=== PATIENT | female | born 1995 | race Caucasian/White ===

== ENCOUNTER → 2018-06-03 | Outpatient (CLI) | payer OTHER | END | disposition home or self-care (01) | LOC: LABWHC1 09:53 | PROVIDERS: ATTEND Obstetrics & Gynecology | DX: N91.2 Amenorrhea, unspecified (principal) | CPT/HCPCS: 36415; 84702 ==

== ENCOUNTER → 2018-07-29 | Outpatient (CLI) | payer OTHER ==
--- NOTE | 2018-07-29 09:22 | US ---
EXAMINATION TYPE: US abdomen complete DATE OF EXAM: 07/29/2018 COMPARISON: CLINICAL HISTORY: R10.11 Right upper quad pain. RUQ pain, NPO EXAM MEASUREMENTS: Liver Length: 14.4 cm Gallbladder Wall: 0.2 cm CHD: 0.3 cm Spleen: 11.6 cm Right Kidney: 9.9 x 5.3 x 4.4 cm Left Kidney: 11.0 x 4.0 x 4.3 cm Suboptimal visualization due to overlying bowel gas Simple cyst left kidney. Pancreas: Tail obscured by overlying bowel gas Liver: wnl Gallbladder: Multiple mobile stones seen Evidence for sonographic Blanchard's sign: neg CBD: Obscured by overlying bowel gas CHD: wnl Spleen: wnl Right Kidney: wnl Left Kidney: Medial anechoic lesion seen at hilum - 1.4 x 1.1 cm Upper IVC: wnl Abd Aorta: Proximal portion obscured by overlying bowel gas. Portions seen appear wnl The liver is homogenous. The intrahepatic portion of the IVC and proximal abdominal aorta are within normal limits. Common bile duct is unremarkable. The visualized portions of the pancreas are homo genous. The spleen is unremarkable. Kidneys are symmetric and free of hydronephrosis. No renal les ions are seen. IMPRESSION: 1. Multiple gallstones noted. 2.
== END | disposition home or self-care (01) ==
LOC: RADUSWWP 08:10
PROVIDERS: ATTEND Physician Assistant Medical
DX: K80.20 Calculus of gallbladder without cholecystitis without obstruction (principal)
CPT/HCPCS: 76700

== ENCOUNTER → 2024-07-31 | Outpatient (CLI) | payer OTHER ==
[2024-07-31 14:05] LABS: INR 0.9 (<1.2); Partial Thromboplastin Time 24.6 sec (22.0-30.0); Prothrombin Time 10.4 sec (10.0-12.5)
[2024-08-01 02:35] LABS: HCT 43.2 % (37.2-46.3); HGB 14.3 g/dL (12.0-15.0); MCH 29.3 pg (27.0-32.0); MCHC 33.1 g/dL (32.0-37.0); MCV 88.5 FL (80.0-97.0); Mean Platelet Volume 10.3 FL (9.5-12.2); NRBC Per 100 WBC 0 X 10*3/uL (0.00-0.01); Platelet Count 309 X 10*3/uL (140-440); RBC 4.88 X 10*6/uL (4.10-5.20); RDW 12.9 % (11.5-14.5); WBC 7.62 X 10*3/uL (4.50-10.00)
[2024-08-01 03:33] LABS: % Iron Saturation 11.11 (12.00-45.00); ALT 29 U/L (8-44); AST 19 U/L (13-35); Albumin 4.2 g/dL (3.8-4.9); Albumin/Globulin Ratio 1.75 Ratio (1.60-3.17); Alkaline Phosphatase 99 U/L (41-126); BUN/Creat Ratio 15.86 Ratio (12.00-20.00); Blood Urea Nitrogen 11.1 mg/dL (9.0-27.0); Calcium 9.4 mg/dL (8.7-10.3); Carbon Dioxide 23.5 mmol/L (21.6-31.8); Chloride 105 mmol/L (96-109); Chol/HDL Ratio 3.33 Ratio; Ferritin 26.4 ng/mL (10.0-291.0); Globulin 2.4 g/dL (1.6-3.3); Glucose 83 mg/dL (70-110); Iron 39 UG/DL (50-170); LDL Cholesterol,Calculated 93.8 mg/dL (0.0-131.0); Magnesium 1.8 mg/dL (1.5-2.4); Phosphorus 3.6 mg/dL (2.4-5.1); Sodium 140 mmol/L (135-145); Total Bilirubin 0.2 mg/dL (0.3-1.2); Total Iron Binding Capacity 351 UG/DL (228-460); Total Protein 6.6 g/dL (6.2-8.2)
[2024-08-01 05:02] LABS: Prealbumin 20.8 mg/dL (18.0-42.0)
[2024-08-01 09:09] LABS: Zinc, Serum 72 ug/dL (60-130)
[2024-08-04 07:06] LABS: Vitamin A 57 ug/dL (38-106)
[2024-08-04 11:55] LABS: Vit B1(Thiamine) 56 ug/L (38-122)
[2024-08-05 04:35] LABS: Anabasine Urine <2.0 ng/mL (<2.0)
[2024-08-09 16:37] LABS: Selenium 101 mcg/L (63-160)
== END | disposition home or self-care (01) ==
LOC: LABWHC1 12:22
PROVIDERS: ATTEND Surgery Plastic and Reconstructive Surgery
DX: E66.01 Morbid (severe) obesity due to excess calories
CPT/HCPCS: 36415; 80053; 80061; 80307; 80323; 82306; 82525; 82607; 82728; 82746; 83036; 83540; 83550; 83735; 83970; 84100; 84134; 84255; 84425; 84443; 84590; 84630; 85027; 85610; 85730; 93005

== ENCOUNTER 2024-09-15 07:03 | Day surgery (SDC) | payer OTHER ==
[2024-09-11 12:57] VITALS: BMI 48.6
--- NOTE | 2024-09-15 07:37 | P.GSHP ---
History of Present Illness H&P Date: 09/15/24 CHIEF COMPLAINT: GERD HISTORY OF PRESENT ILLNESS: The patient is a 29-year-old female who presents reports gastroesophageal reflux disease. Upper endoscopy was offered for further evaluation and management. PAST MEDICAL HISTORY: Please see list. PAST SURGICAL HISTORY: Please see list. MEDICATIONS: Please see list. ALLERGIES: Please see list. SOCIAL HISTORY: No illicit drug use FAMILY HISTORY: No reports of Crohn disease or ulcerative colitis. REVIEW OF ORGAN SYSTEMS: CONSTITUTIONAL: No reports of fevers or chills. GI: Denies any blood in stools or constipation. PHYSICAL EXAM: VITAL SIGNS: Stable GENERAL: Well-developed and pleasant in no acute distress. HEENT: No scleral icterus. Extraocular movements grossly intact. Moist buccal mucosa. NECK: Supple without lymphadenopathy. CHEST: Unlabored respirations. Equal bilateral excursions. CARDIOVASCULAR: Regular rate and rhythm. Distal 2+ pulses. ABDOMEN: Soft, nondistended. MUSCULOSKELETAL: No clubbing, cyanosis, or edema. ASSESSMENT: 1. Gastroesophageal reflux disease PLAN: 1. Recommend proceeding with an upper endoscopy Past Medical History Past Medical History: GERD/Reflux Additional Past Medical History / Comment(s): Gestational diabetes/HTN-during , occ joint pain History of Any Multi-Drug Resistant Organisms: None Reported Past Surgical History: Section, Cholecystectomy Additional Past Surgical History / Comment(s): R arm surgery FX. Csectionsx2 Past Anesthesia/Blood Transfusion Reactions: Postoperative Nausea & Vomiting (PONV) Past Psychological History: No Psychological Hx Reported Smoking Status: Never smoker Past Alcohol Use History: None Reported Past Drug Use History: None Reported - Past Family History Mother Family Medical History: Diabetes Mellitus Father Family Medical History: Hypertension, Seizure Disorder Medications and Allergies Home Medications Medication Instructions Recorded Confirmed Type Omeprazole 1 tab PO DAILY PRN 11/13/23 09/11/24 History Multivit with Calcium,Iron,Min 1 tab PO DAILY 07/30/24 09/11/24 History [Women's Multivitamin] Acetaminophen Tab [Tylenol Tab] 500 mg PO Q6H PRN 09/11/24 09/11/24 History Ibuprofen [Motrin] 600 mg PO Q8HR PRN 09/11/24 09/11/24 History Allergies Allergy/AdvReac Type Severity Reaction Status Date / Time No Known Allergies Allergy Verified 07/30/24 15:19
[2024-09-15 07:45] VITALS: TEMP 97.6
[2024-09-15] MEDS: IV FLUID CONTINUATION 1,000 ML IV ONE (07:45)
[2024-09-15] MEDS: LACTATED RINGERS 1,000 ML IV SCH (07:50)
[2024-09-15] MEDS ORDERED: PROPOFOL 10 MG/ML 20 ML VIAL IV ONE (07:52)
[2024-09-15] MEDS ORDERED: LIDOCAINE 1% INJ 10MG/ML (20 ML MDV) ONE (07:52)
--- NOTE | 2024-09-15 08:22 | P.PCN ---
Date of Procedure: 09/15/24 Description of Procedure: PREOPERATIVE DIAGNOSIS: Gastroesophageal reflux disease. Morbid obesity. POSTOPERATIVE DIAGNOSIS: Gastroesophageal reflux disease. Morbid obesity. Gastritis. OPERATION: Esophagogastroduodenoscopy with biopsies along esophagus, antrum and duodenum SURGEON: Amanda Laguna MD ANESTHESIA: MAC. INDICATIONS: The patient is a 29-year-old female who presents with reflux disease. Benefits and risks of the procedure were described. Informed consent was obtained. DESCRIPTION: The patient was brought into the endoscopy suite and laid in the left lateral decubitus position. An Olympus gastroscope was passed along the posterior oropharynx down to the distal esophagus where the squamocolumnar junction was encountered at 35 cm from the incisors. The stomach was entered and no bile reflux was found. Additional findings are listed below. Biopsies with cold forceps were obtained of the antrum. The first through third portion of the duodenum was examined. Retroflexion of the scope confirmed Hill grade 3 lower esophageal valve. The squamocolumnar junction demonstrated LA grade A erosive esophagitis. The stomach was desufflated. The patient tolerated the procedure well. FINDINGS: Squamocolumnar junction 35 cm from the incisors. Diaphragmatic hiatus at 35 cm. Hill grade 2 lower esophageal valve. LA grade A erosive esophagitis. Biopsies obtained. Biopsies obtained of the duodenum. Chronic gastritis with biopsies obtained. RECOMMENDATIONS: Upper endoscopy as needed. Plan - Discharge Summary New Discharge Prescriptions: Continue Omeprazole 1 tab PO DAILY PRN PRN Reason: gerd Multivit with Calcium,Iron,Min [Women's Multivitamin] 1 tab PO DAILY Acetaminophen Tab [Tylenol] 500 mg PO Q6H PRN PRN Reason: Pain Ibuprofen [Motrin] 600 mg PO Q8HR PRN PRN Reason: Pain Discharge Medication List Omeprazole 1 tab PO DAILY PRN 11/13/23 [History] Multivit with Calcium,Iron,Min [Women's Multivitamin] 1 tab PO DAILY 07/30/24 [History] Acetaminophen Tab [Tylenol] 500 mg PO Q6H PRN 09/11/24 [History] Ibuprofen [Motrin] 600 mg PO Q8HR PRN 09/11/24 [History] Follow up [facility]ment(s[facility] [place] [facility] - [facility] Patient Instructions/Handouts: Gastritis (DC) Discharge Disposition: HOME SELF-CARE
[2024-09-15 08:39] VITALS: BP 129/74; PULSE 91; RESP 18
== END 2024-09-15 08:54 | disposition home or self-care (01) ==
LOC: ORWHC2ENDO 07:03
PROVIDERS: ATTEND Surgery Plastic and Reconstructive Surgery
CPT/HCPCS: 43239; 81025; 88305

== ENCOUNTER → 2024-10-08 | Outpatient (CLI) | payer OTHER ==
[2024-10-08 15:09] VITALS: BP 123/83; PULSE 85; RESP 16; TEMP 98.4; BMI 48.2
--- NOTE | 2024-10-08 15:44 | P.BASOAP ---
Subjective Progress Note Date: 10/08/24 She has lost 10 pounds in 1 month. EGD unremarkable. Path is negative. She has reflux. She wants the bypass. She is taking omeprazole as needed for reflux. Objective - Vital Signs Vital signs: Vital Signs Temp 98.4 F 10/08/24 15:02 Pulse 85 10/08/24 15:02 Resp 16 10/08/24 15:02 BP 123/83 10/08/24 15:02 Pulse Ox FiO2 Intake & Output 10/07/24 10/08/24 10/08/24 18:59 06:59 18:59 Weight 123.377 kg Assessment/Plan Plan: Date: 10/08/24 Initial Weight: 127.658 kg Initial BMI: 49.8 Current Weight: 123.377 kg Current BMI: 48.2 Type of Surgery: Total Volume in Band: Previous Volume: Volume Removed: Volume Added: Band Size:
== END ==
LOC: BARWHC3 14:23
PROVIDERS: ATTEND Surgery Plastic and Reconstructive Surgery
DX: E66.01 Morbid (severe) obesity due to excess calories (principal); K21.9 Gastro-esophageal reflux disease without esophagitis; Z68.42 Body mass index [BMI] 45.0-49.9, adult
CPT/HCPCS: 99211

== ENCOUNTER → 2024-10-20 | Outpatient (CLI) | payer OTHER ==
[2024-10-20 13:13] VITALS: BMI 48.6
== END ==
LOC: BARWHC3 12:44
PROVIDERS: ATTEND Surgery Plastic and Reconstructive Surgery
DX: Z71.3 Dietary counseling and surveillance (principal)
CPT/HCPCS: 97804

== ENCOUNTER 2024-12-29 07:18 | Inpatient (IN) | payer OTHER ==
[2024-12-29] MEDS ORDERED: HYDROmorphone 0.5 MG/0.5 ML SYRINGE IVP PRN (07:22)
--- NOTE | 2024-12-29 07:37 | P.GSHP ---
History of Present Illness H&P Date: 12/29/24 CHIEF COMPLAINT: Morbid obesity HISTORY OF PRESENT ILLNESS: Thi Peralta is a 29-year-old female who comes with lifelong morbid obesity. As result of morbid obesity, she has developed insulin-dependent diabetes type 2, hypertensive heart disease, obstructive sleep apnea, hyperlipidemia, osteoarthritis of the hips and knees. She has completed medical supervised weight loss. She completed medical including cardiac assessment. She has completed psychological risk assessment. All surgical options were reviewed. She elected for gastric bypass. At height of 5 feet 3 inches, her ideal body weight is 140 pounds. She comes in 261 pounds. Highest weight 280 pounds, BMI 49.9. Her body mass index is 46.2. She is 121 pounds overweight. PAST MEDICAL HISTORY: 1. Morbid obesity due to excess calories 2. Body mass index of 49.9 3. Osteoarthritis of the knees. 4. Osteoarthritis of the lower back. 5. Hypertensive heart disease. 6. Gastroesophageal reflux disease 7. Gestational diabetes 8. Postop nausea and vomiting PAST SURGICAL HISTORY: 1. Cholecystectomy 2. Upper endoscopy 3. section HOME MEDICATIONS: See list ALLERGIES: Denies SOCIAL HISTORY: Denies past tobacco use. FAMILY HISTORY: No family history of ulcerative colitis disease or Crohn's disease. Family history of morbid obesity. No lupus in the family. No reports of stomach or esophageal cancer. REVIEW OF ORGAN SYSTEMS: CONSTITUTIONAL: AAt height of 5 feet 3 inches, her ideal body weight is 140 pounds. She comes in 261 pounds. Highest weight 280 pounds, BMI 49.9. Her body mass index is 47.5. She is 121 pounds overweight. HEENT: Denies any active troubles with vision or hearing. ENDOCRINE: Has diabetes. Denies hypothyroidism. CARDIOVASCULAR: Past reports of palpitations or heart attacks or chest pain. RESPIRATORY: Has daytime somnolence. GASTROINTESTINAL: Denies any bright red blood per rectum. Has gastroesophageal reflux disease. MUSCULOSKELETAL: Has lower back pain and joint pain. Has osteoarthritis of the knees. NEURO: No headaches. No seizure disorders. PSYCH: Denies depression. No suicidal ideation. RHEUMATOLOGIC: No lupus. No rheumatoid arthritis. HEMATOLOGIC: Denies any abnormal bleeding or bruising. No personal history of DVTs. SKIN: Has rash. No skin cancer. PHYSICAL EXAM: VITAL SIGNS: Height 5 foot 3 inches, weight 261 pounds. BMI 46.2 GENERAL: Well-developed in no acute distress. HEENT: No scleral icterus. Extraocular movements grossly intact. Hears conversational speech. No nasal drainage. NECK: Supple without lymphadenopathy. CHEST: Nonlabored respirations with equal bilateral excursions. CARDIOVASCULAR: Regular rate and regular rhythm. Distal 2+ pulses. ABDOMEN: Obese, soft, nontender, nondistended. MUSCULOSKELETAL: No clubbing, cyanosis. NEURO: No focal or lateralizing signs. Cranial nerves 2 through 12 grossly within normal limits. PSYCH: Appropriate affect. Alert and oriented to person, place and time. SKIN: Good skin turgor. Well perfused. ASSESSMENT: 1. Morbid obesity due to excess calories 2. Body mass index of 49.9 3. Osteoarthritis of the knees. 4. Osteoarthritis of the lower back. 5. Hypertensive heart disease. 6. Gastroesophageal reflux disease 7. Gestational diabetes 8. Postop nausea and vomiting PLAN: 1. Bariatric options between a sleeve, band and a Betsy-en-Y gastric bypass were reviewed in detail. The patient elected for a gastric bypass. Robotic assisted approach described. 2. The [place] [facility] Data was also reviewed with benefits and risks as described. 3. An 8 page second-generation bariatric consent form was reviewed in detail including potential of bleeding, infection, leaks, adequate weight loss, nutritional deficiencies which the patient demonstrated understanding of the risks. 4. A 2 week high-protein low caloric 800 kcal diet described to address hepatomegaly. 5. Preoperative labs including complete metabolic panel and CBC with type and screen recommended and completed. 6. DVT prophylaxis per [place] [facility]. 7. Antibiotic prophylaxis. 8. Inpatient hospitalization anticipated for more than 2 nights. 9. All questions and concerns were addressed with the patient. 10. verall, patient has expressed understanding of bariatric care including postoperative diet and commitment of lifestyle. Patient should benefit from surgical intervention for correction of her morbid obesity. Past Medical History Past Medical History: GERD/Reflux Additional Past Medical History / Comment(s): Gestational diabetes/HTN-during , occ joint pain History of Any Multi-Drug Resistant Organisms: None Reported Past Surgical History: Section, Cholecystectomy Additional Past Surgical History / Comment(s): R arm surgery FX. Csectionsx2, EGD Past Anesthesia/Blood Transfusion Reactions: Postoperative Nausea & Vomiting (PONV) Past Psychological History: No Psychological Hx Reported Smoking Status: Never smoker Past Alcohol Use History: None Reported Past Drug Use History: None Reported - Past Family History Mother Family Medical History: Diabetes Mellitus Father Family Medical History: Hypertension, Seizure Disorder Medications and Allergies Home Medications Medication Instructions Recorded Confirmed Type Multivit with Calcium,Iron,Min 1 tab PO DAILY 07/30/24 12/24/24 History [Women's Multivitamin] Acetaminophen Tab [Tylenol] 500 mg PO Q6H PRN 09/11/24 12/24/24 History Allergies Allergy/AdvReac Type Severity Reaction Status Date / Time No Known Allergies Allergy Verified 12/29/24 07:40
[2024-12-29] MEDS: ALVIMOPAN 12 MG CAPSULE PO PRN (07:53)
[2024-12-29] MEDS: SCOPOLAMINE 1 MG/72 HR PATCH TRANSDERM STA (07:53)
[2024-12-29] MEDS: ACETAMINOPHEN TAB 500 MG TAB PO PRN (07:53)
--- NOTE | 2024-12-29 08:07 | P.HPADDEND ---
H&P Addendum H&P Addendum Date: 12/29/24 With patient's history of , risk of intra-abdominal adhesions involving small bowel were described. Patient had elected for lysis of adhesions with return for gastric bypass at a later time if present. Additionally, I do recommend abdominal wall block for maximal pain control.
[2024-12-29] MEDS: ONDANSETRON 4 MG/2 ML VIAL IVP PRN (08:13)
[2024-12-29] MEDS: DEXAMETHASONE SOD PHOSPHATE 4 MG/ML 1 ML VIAL IM STA (08:14)
[2024-12-29] MEDS: DEXAMETHASONE SOD PHOSPHATE 4 MG/ML 1 ML VIAL IVP STA (08:14)
[2024-12-29] MEDS: MIDAZOLAM 2 MG/2 ML VIAL IV PRN (08:25)
[2024-12-29] MEDS: fentaNYL (PF) 50 MCG/ML 2 ML AMP IVP STA (08:26)
[2024-12-29] MEDS: LACTATED RINGERS 1,000 ML IV SCH (08:28)
--- NOTE | 2024-12-29 08:37 | P.ANPRN ---
Procedure Note - Anesthesia - Nerve Block Performed Bilateral Erector Spinae Single Time Out Performed: Yes Date of Procedure: 12/29/24 Procedure Start Time: : Procedure Stop Time: Location of Patient: PreOp Indication: Acute Post-Operative Pain, Analgesia, Requested by Surgeon Sedation Type: Sedate with meaningful contact maintained Preparation: Sterile Prep Position: Prone Catheter: None Needle Types: Pajunk Needle Gauge: 21 Ultrasound used to visualize needle placement: Yes Ultrasound used to observe medication spread: Yes Injectate: 0.5% Ropivacaine (see comment for volume) (Ropiv 20ml+Decadron, Needle level-T7---Each side (Res)) Blood Aspirated: No Pain Paresthesia on Injection Noted: No Resistance on Injection: Normal Image Stored and Saved: Yes Events: Uneventful and Well Tolerated
[2024-12-29] MEDS: HEPARIN SODIUM,PORCINE 5,000 UNIT/ML 1 ML VIAL SQ PRN (08:38)
[2024-12-29] MEDS: IV FLUID CONTINUATION 1,000 ML IV ONE ×2 (08:40→13:04)
[2024-12-29] MEDS ORDERED: ROPIVACAINE 5 MG/ML 30 ML VIAL ONE (09:30)
[2024-12-29] MEDS ORDERED: MIDAZOLAM 2 MG/2 ML VIAL ONE (09:30)
[2024-12-29] MEDS ORDERED: ONDANSETRON 4 MG/2 ML VIAL ONE (09:30)
[2024-12-29] MEDS ORDERED: fentaNYL (PF) 50 MCG/ML 2 ML AMP ONE (09:30)
[2024-12-29] MEDS ORDERED: SUCCINYLCHOLINE CHLORIDE 200 MG/10 ML VIAL IV ONE (09:30)
[2024-12-29] MEDS ORDERED: KETAMINE HCL IN 0.9 % NACL 50 MG/5 ML SYRINGE ONE (09:30)
[2024-12-29] MEDS ORDERED: GLYCOPYRROLATE 0.2 MG/ML 2 ML VIAL ONE (09:30)
[2024-12-29] MEDS ORDERED: LIDOCAINE 1% INJ 10MG/ML (20 ML MDV) ONE (09:30)
[2024-12-29] MEDS ORDERED: PROPOFOL 10 MG/ML 20 ML VIAL IV ONE (09:30)
[2024-12-29] MEDS ORDERED: ROCURONIUM 10 MG/ML (5 ML VIAL) IV ONE (09:30)
[2024-12-29] MEDS ORDERED: HYDROmorphone (PF) 1 MG/ML ONE (09:30)
[2024-12-29] MEDS ORDERED: NEOSTIGMINE 1 MG/ML 10 ML VIAL ONE (09:30)
[2024-12-29] MEDS: ceFAZolin 3 GM in SODIUM CHLORIDE 0.9% 100 ML IVPB PRN (09:35)
[2024-12-29] MEDS: LIDOCAINE 1%-EPI 1:100,000 20 ML VIAL SQ ONE (10:04)
[2024-12-29] MEDS: LACTATED RINGERS 1,000 ML IV ONE (10:45)
[2024-12-29] MEDS ORDERED: diphenhydrAMINE 50 MG/ML 1 ML VIAL IVP PRN (15:20)
[2024-12-29] MEDS ORDERED: NALOXONE 0.4 MG/ML 1 ML VIAL IV PRN ×2 (15:20→15:22)
[2024-12-29] MEDS ORDERED: HYOSCYAMINE ORAL DROPS 1.875 MG/15 ML BOTTLE PO PRN (15:20)
[2024-12-29] MEDS ORDERED: HYDROmorphone 1 MG/ML 1 ML SYRINGE IVP PRN (15:20)
[2024-12-29] MEDS: fentaNYL PCA 500 MCG/50 ML BAG IV SCH (16:30)
[2024-12-29] MEDS: SIMETHICONE 40 MG/0.6 ML DROPS 2,000 MG/30 ML BOTTLE PO SCH (16:31)
[2024-12-29] MEDS: 0.9% NACL WITH KCL 20 MEQ/L 1,000 ML IV SCH (16:31)
[2024-12-29] MEDS: ALBUTEROL NEBULIZED 2.5 MG/3 ML INHALATION SCH (16:58)
[2024-12-29] MEDS: ACETAMINOPHEN IV (For NPO) 1,000 MG in EMPTY BAG 1 BAG IVPB SCH (18:36)
[2024-12-29] MEDS: ONDANSETRON 4 MG/2 ML VIAL IVP SCH (18:37)
[2024-12-29] MEDS: ACETAMINOPHEN IV (For NPO) 1,000 MG in EMPTY BAG 1 BAG IVPB ONE (19:36)
[2024-12-29] MEDS: ceFAZolin 3 GM in SODIUM CHLORIDE 0.9% 100 ML IVPB SCH (21:01)
[2024-12-29] MEDS: PANTOPRAZOLE 40 MG/10 ML VIAL IV SCH (22:24)
[2024-12-30 04:12] LABS: African American GFR (CKD) >90 (>60 ml/min/1.73 sqM); Anion Gap 12 mmol/L; Blood Urea Nitrogen 9 mg/dL (7-17); Calcium 8.5 mg/dL (8.4-10.2); Carbon Dioxide 19 mmol/L (22-30); Chloride 105 mmol/L (98-107); Magnesium 1.9 mg/dL (1.6-2.3); Non-African American GFR(CKD) >90 (>60 ml/min/1.73 sqM); Phosphorus 3.4 mg/dL (2.5-4.5); Potassium 4.4 mmol/L (3.5-5.1); Sodium 136 mmol/L (137-145)
[2024-12-30 07:56] VITALS: RESP 15; TEMP 98.3
[2024-12-30] MEDS: 0.9% NACL WITH KCL 20 MEQ/L 1,000 ML IV SCH (08:40)
[2024-12-30 09:07] LABS: Basophils # (A) 0.05 X 10*3/uL (0.00-0.10); Basophils % (A) 0.3 %; Eosinophils # (A) 0 X 10*3/uL (0.04-0.35); Eosinophils % (A) 0 %; HCT 40.7 % (37.2-46.3); HGB 13.5 g/dL (12.0-15.0); Lymphocytes # (A) 2.23 X 10*3/uL (0.90-5.00); Lymphocytes % (A) 11.5 %; MCH 29.8 pg (27.0-32.0); MCHC 33.2 g/dL (32.0-37.0); MCV 89.8 FL (80.0-97.0); Mean Platelet Volume 11.2 FL (9.5-12.2); Monocytes % (A) 5.7 %; NRBC Per 100 WBC 0 X 10*3/uL (0.00-0.01); Neutrophils # (A) 15.81 X 10*3/uL (1.80-7.70); Neutrophils % (A) 81.8 %; Platelet Count 298 X 10*3/uL (140-440); RBC 4.53 X 10*6/uL (4.10-5.20); RDW 12.7 % (11.5-14.5); WBC 19.32 X 10*3/uL (4.50-10.00)
[2024-12-30] MEDS: ENOXAPARIN 30 MG/0.3 ML SYRINGE SQ SCH (10:20)
[2024-12-30 10:31] VITALS: BMI 46.1
[2024-12-30 10:59] VITALS: BP 102/69; PULSE 98
--- NOTE | 2024-12-30 11:12 | P.DS ---
Providers Date of admission: 12/29/24 07:18 Expected date of discharge: 12/30/24 Attending physician: Amanda Laguna Consults: 12/29/24 07:45 Consult Physician Routine Consulting Provider: [facility] Consult Reason/Comments: TIVA Do you want consulting provider notified?: Yes Primary care physician: Stated None Hospital Course: Discharge diagnosis 1. Morbid obesity due to excess calories 2. Body mass index of 49.9 3. Osteoarthritis of the knees. 4. Osteoarthritis of the lower back. 5. Hypertensive heart disease. 6. Gastroesophageal reflux disease 7. Gestational diabetes 8. Postop nausea and vomiting Hospital course This is a 29-year-old female with a known history of morbid obesity. She is status post robotic assisted laparoscopic Jax-en-Y gastric bypass surgery. Patient tolerated surgery well. Her pain is controlled. She is tolerating diet. She has been up and ambulating. She is afebrile. Denies any difficulty urinating. She is stable for discharge. Physician Gluing Machine Offbearer note has been reviewed by physician. Signing provider agrees with the documented findings, assessment, and plan of care. As above. Please see additional documentation per MD. Patient presented with morbid obesity. Patient underwent a gastric bypass uneventfully. Patient had tolerated diet. Pain was well-controlled. She was stable for discharge. Close outpatient follow-up at the bariatric center described. Procedures: OPERATION: 1. Robotic assisted da Basia Xi laparoscopic Jax-en-Y gastric bypass, 100 cm antecolic antegastric Jax limb, with 25 mm EEA. 2. Intraoperative esophagogastrojejunoscopy. ANESTHESIA: GETA and local ESTIMATED BLOOD LOSS: 5 mL SPECIMENS REMOVED: None. COMPLICATIONS: NONE. Operative Findings: 1. Biliopancreatic limb 60 cm 2. Bypass performed using 100 cm jax limb secondary to avoid increased tension at 150 cm. 3. Jejunojejunostomy and Vicente's defects closed using 2-0 V-LOC, green 4. Leak test negative with gastrojejunal anastomosis patent and hemostatic. 5. Reinforcement sutures were placed along the gastrojejunal anastomosis at 3:00, 9:00 and 12:00. Patient Condition at Discharge: Stable Plan - Discharge Summary Discharge Rx Participant: Yes New Discharge Prescriptions: New Simethicone 40 mg/0.6 ml Drops [Mylicon Drops] 40 mg PO PCHS PRN #30 ml PRN Reason: Gas Ondansetron Odt [Zofran Odt] 4 mg PO Q8HR PRN #9 tab PRN Reason: Nausea bisacodyL [Dulcolax] 5 mg PO DAILY PRN #10 tab PRN Reason: Constipation Omeprazole [PriLOSEC] 40 mg PO DAILY #90 cap Acetaminophen Tab [Tylenol] 1,000 mg PO Q6HR PRN #30 tablet PRN Reason: Pain Discontinued Multivit with Calcium,Iron,Min [Women's Multivitamin] 1 tab PO DAILY Acetaminophen Tab [Tylenol] 500 mg PO Q6H PRN PRN Reason: Pain Discharge Medication List Acetaminophen Tab [Tylenol] 1,000 mg PO Q6HR PRN #30 tablet 12/30/24 [Rx] Omeprazole [PriLOSEC] 40 mg PO DAILY #90 cap 12/30/24 [Rx] Ondansetron Odt [Zofran Odt] 4 mg PO Q8HR PRN #9 tab 12/30/24 [Rx] Simethicone 40 mg/0.6 ml Drops [Mylicon Drops] 40 mg PO PCHS PRN #30 ml 12/30/24 [Rx] bisacodyL [Dulcolax] 5 mg PO DAILY PRN #10 tab 12/30/24 [Rx] Follow up Appointment(s)/Referral(s): [facility] [NON-STAFF] - 1 Week [facility] [[facility]-STAFF] - 1 Week [place], [place] [NON-STAFF] - 12/31/24 Patient Instructions/Handouts: *Surgery [facility] - Scopalamine Patch Instructions, Jax-en-Y Gastric Bypass (DC) Activity/Diet/Wound Care/Special Instructions: Liquid diet only for 2 weeks No lifting over 4 pounds in 4 weeks May Shower. No soaking in bath tubs 2 weeks Please notify your surgeon if you develop nausea and vomiting including new onset of abdominal pain. Continue to use incentive spirometry to prevent pneumonias. Please continue to ambulate at home to prevent blood clots in legs. Follow-up at the bariatric center. May shower. Dressings to be discontinued by surgeon in the office. Drink 64 oz of fluid daily. Start protein shakes on . Notify bariatric center for temp over 101.0, increased pain, drainage from incisions. No straws or carbonated beverages. Liquid diet only. Sugar content should be less than 6 g to avoid dumping syndrome. Take MOM for constipation. CRUSH, OPEN, OR CUT TABLETS LARGER THAN A SIZE OF A TIC TAC Do not take multivitamin due to increased risk of bleeding Discharge/Stand Alone Forms: Area PCPs Discharge Disposition: HOME SELF-CARE
--- NOTE | 2025-01-11 20:06 | P.OP ---
Date of Procedure: 12/29/24 Description of Procedure: SURGEON: LEATHA GARAY MD PREOPERATIVE DIAGNOSES: 1. Morbid obesity due to excess calories 2. Body mass index of 49.8 3. Osteoarthritis of the knees. 4. Osteoarthritis of the lower back. 5. Osteoarthritis of the hips 6. Osteoarthritis of the ankles 7. Osteoarthritis of the feet 8. Family history morbid obesity 9. Gastroesophageal reflux disease 10. History of hypertensive heart disease 11. History of gestational diabetes POSTOPERATIVE DIAGNOSES: 1. Morbid obesity due to excess calories 2. Body mass index of 49.8 3. Osteoarthritis of the knees. 4. Osteoarthritis of the lower back. 5. Osteoarthritis of the hips 6. Osteoarthritis of the ankles 7. Osteoarthritis of the feet 8. Family history morbid obesity 9. Gastroesophageal reflux disease 10. History of hypertensive heart disease 11. History of gestational diabetes OPERATION: 1. Robotic assisted da Basia Xi laparoscopic Jax-en-Y gastric bypass, 100 cm antecolic antegastric Jax limb, with 25 mm EEA. 2. Intraoperative esophagogastrojejunoscopy. ANESTHESIA: GETA and local ESTIMATED BLOOD LOSS: 5 mL SPECIMENS REMOVED: None. COMPLICATIONS: NONE. Operative Findings: 1. Biliopancreatic limb 60 cm 2. Bypass performed using 100 cm jax limb secondary to avoid increased tension at 150 cm. 3. Jejunojejunostomy and Vicente's defects closed using 2-0 V-LOC, green 4. Leak test negative with gastrojejunal anastomosis patent and hemostatic. 5. Reinforcement sutures were placed along the gastrojejunal anastomosis at 3:00, 9:00 and 12:00. INDICATIONS: Thi Peralta is a 29-year-old female who comes with lifelong morbid obesity. She is looking into the gastric bypass. She has osteoarthritis of the lower back pain, hips, knees, ankle, and feet. She completed the bariatric risk assessment. At height of 5 feet 3 inches, her ideal body weight is 135 pounds. Her highest weight is 281 pounds, body mass index 49.9.. She comes in 261 pounds from 281 pounds 6 months ago. She has lost 20 pounds in 6 months. Her body mass index is 46.2. She is 126 pounds overweight. A second-generation bariatric consent form was described in detail including the possibility of protein malnutrition, leaks, gastrojejunal stricture, venous thrombosis, need for further surgery for which she demonstrated understanding. Benefits and risks of the procedure were described at length. Informed consent was obtained. DESCRIPTION: The patient was brought into the operating room theater. She was placed supine. She had received heparin subcutaneously for DVT prophylaxis. Additionally Peridex oral solution as an oral decontaminant was placed per anesthesia. After general induction, the abdomen was prepped and draped in standard sterile fashion. Ioban draping was placed along the abdomen. Hebert catheter was avoided. A robotic da Basia Xi system was prepped and primed. Incisions were proposed at 15 cm from the xiphoid. Proposed port sites were marked with indelible marker along the anterior axillary line bilaterally, mid clavicular line bilaterally with each port marked 10 cm from each other. The robotic stapler port was marked for the right midclavicular line including along the left midclavicular line. A 5 mm 0 degrees laparoscopic trocar entry was performed along the left upper quadrant. The abdomen was insufflated to 15 mmHg pressure, which she tolerated well. Diagnostic laparoscopy demonstrated no injury to bowel, viscera, or mesentery. The liver was consistent with her 2-week protein diet without hepatomegaly. An 8 mm camera port was placed left lateral to the umbilicus at the epigastrium, 15 cm distal to the xiphoid. Next, 12-mm robot stapler port was placed along the right mid abdomen. An 12 mm port was exchanged along the left upper quadrant. An 8 mm port was placed on the left lateral abdominal wall under direct visualization Please note that the ports were placed 18 to 20 cm away from the target anatomy of the stomach. Care was taken to check that each robotic arm was safely away from collision with the bed or the patient. At the epigastrium, a medium sized Odrene liver retractor was placed under direct visualization with the [employer] Sheet Finishing Press Operator placed under the right shoulder of the patient. The patient was repositioned in reverse Trendelenburg position at 25-degrees after lowering the bed. The robot was docked over the patient. Using grasper for arm 3, a grasper for arm 1, including vessel sealer for arm 4, the robotic system was docked and primed as described. Instruments were interchanged by the facilities maintenance assistant including endoscissors, the needle route cdl driver, and stapler. I had sat at the console. Next, the transverse mesocolon was reflected into the upper abdomen for the jejunojejunostomy portion of the case. The ligament of Treitz was identified and measured 60 cm antegrade and marked using 3-0 Silk. The jejunum was divided at the 60 cm point using 60-mm blue loads above the suture measurement. The biliopancreatic limb was held in place. The Jax limb was measured 100 cm in an antegrade fashion to avoid tension along the proposed gastrojejunal anastomosis. At 100 cm along the anti-mesenteric border of the Jax limb, a jejunojejunostomy was proposed whereby enterotomies were created along the biliopancreatic limb including the Jax limb using a Bovie cautery. A stay suture of 3-0 Slik was placed to align and create the anastomosis. The enterotomies along the anti- mesenteric borders were created followed by unidirectional fire from the patient's right side using 60 mm white loads [employer] technology robotic stapler. The jejunojejunostomy was found to be hemostatic. The enterotomy was closed after horizontal mattress stitch of 3-0 silk used to elevate the enterotomy followed by closure with the robotic stapler blue load. The jejunal limb was temporarily tacked along the left upper quadrant. Attention was now brought to the creation of the gastrojejunostomy. Along the lesser curvature of the stomach, dissection was made along the retrogastric space to allow first firing of the robotic staple. Multiple magdaleno of green loads and blue loads of 60 mm staplers were used to divide the stomach to create the gastric pouch. The patient was then prepared for placement of a Orvil. A 25-mm Orvil was selected for placement by the nurse medical records custodian. The Orvil tubing was placed anterior to the staple line of the gastric pouch and brought out through the left inferior lateral port. I re-scrubbed into the case. The robotic arms were temporarily undocked. The Orvil was then carefully and successfully navigated with the help of the nurse medical records custodian into the gastric pouch. The sutures were identified and divided. The tubing was from the 25 mm anvil. As the Orvil had been placed, the jejunal limb was brought proximally into the upper abdomen. No torsion was found upon the Jax limb. No tension was identified as the limb was brought along the upper abdomen. The jejunal limb was previously opened using hook cautery. The 25-mm EEA stapler was brought through the left anterior lateral port site from the left side. The EEA stapler was brought through the open jejunal limb and its needle was deployed at the antimesenteric border where the anvil were mated for approximately 1 minute upon firing. The stapler was removed after irrigating the shaft of the instrument with warm normal saline. Donuts were found to be intact and on both sides. The da Basia Xi robot arms were then re-docked. I sat at the console. The open jejunal limb defect was closed using 60 mm blue loads after releasing any tension from the blind jejunal limb. No redundancy was present for jejunal limb. The transverse mesocolon was divided for the jax limb. Reinforcement sutures were placed along the gastrojejunal anastomosis and placed along the clock, 9:00, 12:00 o'clock position using 3-0 Vicryl. The Vicente and jejunojejunostomy mesenteric defect were closed using 2-0 V LOC, green. I then went to the head of the bed to perform the esophagogastrojejunoscopy and a leak test. An Olympus gastroscope was passed alongthe posterior oropharynx which was unremarkable for any injury to the vocal cords. The scope was passed down to the proximal portion of the pouch, whereby no active bleeding was encountered. Excellent visualization of the gastrojejunostomy anastomosis, including the Jax limb was encountered with endoscopic image obtained. The anastomosis was found to be patent without active bleeding. Residual blood was suctioned from the gastric pouch. The gastrointestinal tract was desufflated. No evidence of intraoperative leak was encountered as the gastric pouch and anastomosis were submerged under normal saline solution. The robot was then undocked. I then went back to the bedside of the patient, whereby with coordinated effort of the facilities maintenance assistant, irrigation was aspirated from the upper abdominal cavity. Tisseel was placed circumferentially over the anastomosis of the gastrojejunostomy. The fascial defect of the EEA stapler was closed using Jadon Santos and 0 Vicryl. All instruments and pneumoperitoneum were evacuated from the abdominal cavity. The port correlating with the EEA stapler device was cleansed with normal saline solution and hydrogen peroxide. The rest of incisions were reapproximated using 4-0 Monocryl in an interrupted subcuticular fashion. Local anesthetic was infiltrated along the skin for postop analgesia. Liquid glue was applied to the skin. OptiFoam dressing was placed along the EEA stapler site. An abdominal binder was placed. At the end of the procedure, needle, sponge and instrument count had been veri fied correct by the surgical garment assembler. The patient had tolerated the procedure well and was extubated and taken to the postanesthesia unit in stable condition.
== END 2024-12-30 13:30 | disposition home or self-care (01) | DRG 403 ==
LOC: 2ORMAIN 07:18 → UNDODISIN 13:07 → 4SSUR 15:20
PROVIDERS: ADMIT Surgery Plastic and Reconstructive Surgery; ATTEND Surgery Plastic and Reconstructive Surgery
PROC: 8E0W4CZ Robotic Assisted Procedure of Trunk Region, Percutaneous Endoscopic Approach (ICD-10-PCS; principal; 2024-12-29 09:15)
PROC: 0D164ZA Bypass Stomach to Jejunum, Percutaneous Endoscopic Approach (ICD-10-PCS; principal; 2024-12-29 09:15)
PROC: 0DJ08ZZ Inspection of Upper Intestinal Tract, Via Natural or Artificial Opening Endoscopic (ICD-10-PCS; principal; 2024-12-29 09:15)
DX: E66.01 Morbid (severe) obesity due to excess calories (principal); Z68.42 Body mass index [BMI] 45.0-49.9, adult; E11.9 Type 2 diabetes mellitus without complications; Z79.4 Long term (current) use of insulin; I11.9 Hypertensive heart disease without heart failure; G47.33 Obstructive sleep apnea (adult) (pediatric); E78.5 Hyperlipidemia, unspecified; M19.072 Primary osteoarthritis, left ankle and foot; M19.071 Primary osteoarthritis, right ankle and foot; M16.0 Bilateral primary osteoarthritis of hip; M17.0 Bilateral primary osteoarthritis of knee; M19.09 Primary osteoarthritis, other specified site; K21.9 Gastro-esophageal reflux disease without esophagitis; Z86.32 Personal history of gestational diabetes; Z98.891 History of uterine scar from previous surgery
CPT/HCPCS: 64999; 80051; 81025; 82310; 82565; 83735; 84100; 84520; 85025; 94640; 94760

== ENCOUNTER → 2025-01-28 | Outpatient (CLI) | payer OTHER ==
[2025-01-28 14:26] VITALS: BP 124/79; PULSE 79; RESP 16; TEMP 98.3; BMI 42.7
--- NOTE | 2025-01-28 15:08 | P.BASOAP ---
Subjective Progress Note Date: 01/28/25 Nausea and constipation from severe dehydration. Protein is 60 to 75. She is under at 40 to 50 grams of protein. She is starting a protein drink. She did allani protein powder. Add protein. Labs Objective - Vital Signs Vital signs: Vital Signs Temp 98.3 F 01/28/25 14:17 Pulse 79 01/28/25 14:17 Resp 16 01/28/25 14:17 BP 124/79 01/28/25 14:17 Pulse Ox FiO2 Intake & Output 01/27/25 01/28/25 01/28/25 18:59 06:59 18:59 Weight 109.316 kg Assessment/Plan Plan: Date: 01/28/25 Initial Weight: 127.658 kg Initial BMI: 49.8 Current Weight: 109.316 kg Current BMI: 42.7 Type of Surgery: Total Volume in Band: Previous Volume: Volume Removed: Volume Added: Band Size:
== END ==
LOC: BARWHC3 13:59
PROVIDERS: ATTEND Surgery Plastic and Reconstructive Surgery
DX: E66.01 Morbid (severe) obesity due to excess calories (principal); Z68.41 Body mass index [BMI] 40.0-44.9, adult; Z91.09 Other allergy status, other than to drugs and biological substances
CPT/HCPCS: 97803; G0463; 99211

== ENCOUNTER → 2025-02-11 | Outpatient (CLI) | payer OTHER ==
[2025-02-11 14:59] LABS: HCT 45.5 % (37.2-46.3); HGB 14.8 g/dL (12.0-15.0); MCH 29.3 pg (27.0-32.0); MCHC 32.5 g/dL (32.0-37.0); MCV 90.1 FL (80.0-97.0); Mean Platelet Volume 11.4 FL (9.5-12.2); NRBC Per 100 WBC 0 X 10*3/uL (0.00-0.01); Platelet Count 275 X 10*3/uL (140-440); RBC 5.05 X 10*6/uL (4.10-5.20); RDW 13.4 % (11.5-14.5); WBC 6.33 X 10*3/uL (4.50-10.00)
[2025-02-11 15:38] LABS: Prealbumin 18.2 mg/dL (18.0-42.0)
[2025-02-11 16:06] LABS: % Iron Saturation 30.91 (12.00-45.00); ALT 44 U/L (8-44); AST 26 U/L (13-35); Albumin 4.3 g/dL (3.8-4.9); Albumin/Globulin Ratio 1.65 Ratio (1.60-3.17); Alkaline Phosphatase 95 U/L (41-126); BUN/Creat Ratio 21.57 Ratio (12.00-20.00); Blood Urea Nitrogen 15.1 mg/dL (9.0-27.0); Calcium 9.6 mg/dL (8.7-10.3); Carbon Dioxide 21.3 mmol/L (21.6-31.8); Chloride 106 mmol/L (96-109); Chol/HDL Ratio 3.54 Ratio; Ferritin 59.5 ng/mL (10.0-291.0); Globulin 2.6 g/dL (1.6-3.3); Glucose 88 mg/dL (70-110); Iron 102 UG/DL (50-170); LDL Cholesterol,Calculated 83.9 mg/dL (0.0-131.0); Magnesium 1.8 mg/dL (1.5-2.4); Phosphorus 3.5 mg/dL (2.4-5.1); Potassium 3.9 mmol/L (3.5-5.5); Sodium 140 mmol/L (135-145); Total Bilirubin 0.5 mg/dL (0.3-1.2); Total Iron Binding Capacity 330 UG/DL (228-460); Total Protein 6.9 g/dL (6.2-8.2); VLDL Calculation 15.12 mg/dL (5.00-40.00)
[2025-02-12 12:35] LABS: Zinc, Serum 71 ug/dL (60-130)
[2025-02-13 08:35] LABS: Vit B1(Thiamine) 66 ug/L (38-122)
[2025-02-13 09:57] LABS: Vitamin A 34 ug/dL (38-106)
== END | disposition home or self-care (01) ==
LOC: LABWHC1 09:16
PROVIDERS: ATTEND Surgery Plastic and Reconstructive Surgery
DX: E55.9 Vitamin D deficiency, unspecified (principal); E66.01 Morbid (severe) obesity due to excess calories; E89.1 Postprocedural hypoinsulinemia; E45 Retarded development following protein-calorie malnutrition; E44.0 Moderate protein-calorie malnutrition; D50.8 Other iron deficiency anemias; D50.9 Iron deficiency anemia, unspecified; K74.1 Hepatic sclerosis; K50.90 Crohn's disease, unspecified, without complications; N19 Unspecified kidney failure; T56.894A Toxic effect of other metals, undetermined, initial encounter
CPT/HCPCS: 36415; 80053; 80061; 82306; 82525; 82607; 82728; 82746; 83036; 83540; 83550; 83735; 83970; 84100; 84134; 84255; 84425; 84443; 84590; 84630; 85027; 85730

== ENCOUNTER → 2025-05-07 | Outpatient (CLI) | payer OTHER ==
[2025-05-07 15:26] LABS: Partial Thromboplastin Time 23.7 sec (22.0-30.0); Prothrombin Time 10.9 sec (10.0-12.5)
[2025-05-07 19:21] LABS: HGB 13.7 g/dL (12.0-15.0); MCH 29.9 pg (27.0-32.0); MCHC 33.4 g/dL (32.0-37.0); MCV 89.5 FL (80.0-97.0); NRBC Per 100 WBC 0 X 10*3/uL (0.00-0.01); Platelet Count 288 X 10*3/uL (140-440); RBC 4.58 X 10*6/uL (4.10-5.20); RDW 12.3 % (11.5-14.5); WBC 7.09 X 10*3/uL (4.50-10.00)
[2025-05-07 19:52] LABS: Prealbumin 14.9 mg/dL (18.0-42.0)
[2025-05-07 21:29] LABS: % Iron Saturation 17.94 (12.00-45.00); ALT 30 U/L (8-44); AST 25 U/L (13-35); Albumin 3.9 g/dL (3.8-4.9); Albumin/Globulin Ratio 1.77 Ratio (1.60-3.17); Alkaline Phosphatase 93 U/L (41-126); BUN/Creat Ratio 31.14 Ratio (12.00-20.00); Blood Urea Nitrogen 21.8 mg/dL (9.0-27.0); Calcium 8.7 mg/dL (8.7-10.3); Carbon Dioxide 24.8 mmol/L (21.6-31.8); Chloride 107 mmol/L (96-109); Chol/HDL Ratio 2.55 Ratio; Ferritin 55.3 ng/mL (10.0-291.0); Globulin 2.2 g/dL (1.6-3.3); Glucose 93 mg/dL (70-110); Iron 54 UG/DL (50-170); LDL Cholesterol,Calculated 54.2 mg/dL (0.0-131.0); Phosphorus 3.6 mg/dL (2.4-5.1); Potassium 3.9 mmol/L (3.5-5.5); Sodium 142 mmol/L (135-145); Total Bilirubin 0.4 mg/dL (0.3-1.2); Total Iron Binding Capacity 301 UG/DL (228-460); Total Protein 6.1 g/dL (6.2-8.2); VLDL Calculation 12.14 mg/dL (5.00-40.00)
[2025-05-08 11:31] LABS: Zinc, Serum 54 ug/dL (60-130)
== END | disposition home or self-care (01) ==
LOC: LABWHC1 14:43
PROVIDERS: ATTEND Surgery Plastic and Reconstructive Surgery
DX: E66.01 Morbid (severe) obesity due to excess calories (principal); E89.1 Postprocedural hypoinsulinemia; E55.9 Vitamin D deficiency, unspecified; E44.0 Moderate protein-calorie malnutrition; E45 Retarded development following protein-calorie malnutrition; K74.1 Hepatic sclerosis; N19 Unspecified kidney failure; T56.894A Toxic effect of other metals, undetermined, initial encounter; K50.90 Crohn's disease, unspecified, without complications; D50.8 Other iron deficiency anemias; K91.2 Postsurgical malabsorption, not elsewhere classified
CPT/HCPCS: 36415; 80053; 80061; 82306; 82525; 82607; 82728; 82746; 83036; 83540; 83550; 83735; 83970; 84100; 84134; 84255; 84425; 84443; 84590; 84630; 85027; 85610; 85730